=== PATIENT | male | born 1975 | race Caucasian/White ===

== ENCOUNTER 2016-10-18 21:41 | Inpatient (IN) | payer MEDICAID ==
[~2016-10-18] VITALS: Ht 162.6 cm; Wt 67.2 kg
[2016-10-18 21:47] VITALS: BP 130/100
--- NOTE | 2016-10-18 21:49 | NUR ---
[facility] TO ER BED 6
--- NOTE | 2016-10-18 21:59 | NUR ---
PT STATES HE HAS NOT BEEN ABLE TO KEEP ANY FOOD DOWN FOR 6 DAYS. PT SAYS HE EATS BUT THEN VOMIT IT OUT. PT ALSO STATES HE HAS HEART ARRYTHMIA
--- NOTE | 2016-10-18 21:59 | NUR ---
41Y M BIBA C/O ANXIETY AND DRINKING EXCESSIVE ALCOHOL X 2 WEEKS. PT DENIES CP SOB AT THE MOMENT. IV ACCESS WAS ESTABLISHED BY EMS 18G LAC. PT IS AAO X4. PT DENIES ANY PAIN AT THE MOMENT
[2016-10-18] MEDS ORDERED: THIAMINE 200 MG/2 ML VIAL IM ONE (22:15)
[2016-10-18] MEDS ORDERED: FOLIC ACID 5 MG/ML SYR IV ONE (22:15)
[2016-10-18] MEDS ORDERED: NACL 0.9% 2,000 ML IV ONE (22:15)
[2016-10-18 22:37] LABS: BASOPHILS # (AUTO) 0.2 K/uL (0.00-0.22); BASOPHILS % (AUTO) 4.7 % (0.0-2.0); EOSINOPHILS % (AUTO) 0.8 % (0.0-4.0); HEMATOCRIT 43.9 % (36-52); HEMOGLOBIN 14.8 g/dL (12.0-18.0); LYMPHOCYTES # (AUTO) 1.7 K/uL (2.0-11.5); LYMPHOCYTES % (AUTO) 43.1 % (20.5-51.1); MEAN CORPUSCULAR HEMOGLOBIN 30 pg (27-31); MEAN CORPUSCULAR HGB CONC 34 g/dL (33-37); MEAN CORPUSCULAR VOLUME 89 fL (80-94); MONOCYTES # (AUTO) 0.4 K/uL (0.8-1.0); MONOCYTES % (AUTO) 10.9 % (1.7-9.3); NEUTROPHILS # (AUTO) 1.5 K/uL (1.8-7.7); NEUTROPHILS % (AUTO) 40.5 % (42.2-75.2); PLATELET COUNT (AUTO) 95 K/uL (140-450); RED BLOOD CELL COUNT(AUTO) 4.93 MIL/uL (4.20-6.10); RED CELL DISTRIBUTION WIDTH 12.7 % (11.6-13.7); WHITE BLOOD COUNT (AUTO) 3.8 K/uL (4.8-10.8)
[2016-10-18] MEDS ORDERED: ONDANSETRON 4 MG/2 ML VIAL IVP ONE (22:50)
[2016-10-18] MEDS ORDERED: LORazepam 2 MG/ML VIAL IVP ONE (22:50)
[2016-10-18 22:52] LABS: ANION GAP 19.9 (8-16); CALCIUM 7.9 mg/dL (8.5-10.1); CARBON DIOXIDE 24.8 mmol/L (21-32); CREATININE 0.8 mg/dL (0.6-1.3); POTASSIUM 3.7 mmol/L (3.5-5.1)
[2016-10-18 22:56] LABS: INR 1.1 (0.8-1.2); PARTIAL THROMBOPLASTIN TIME 25.4 secs (22-35.6)
[2016-10-18 23:04] LABS: TOTAL BILIRUBIN 0.4 mg/dL (0.0-1.0); TOTAL PROTEIN, SERUM 7.7 g/dL (6.4-8.2)
[2016-10-18 23:05] LABS: ALBUMIN 3.8 g/dL (3.4-5.0); MAGNESIUM 1.9 mg/dL (1.8-2.4)
[2016-10-18] MEDS ORDERED: FAMOTIDINE 20 MG/2 ML VIAL IVP ONE (23:20)
[2016-10-18 23:28] LABS: CKMB RELATIVE INDEX 0.5 (0.0-2.5); CREATINE KINASE MB 6.7 ng/mL (0-3.6)
[2016-10-18 23:37] LABS: APPEARANCE,URINE CLEAR (CLEAR); COLOR,URINE YELLOW (YELLOW)
[2016-10-18 23:38] LABS: BACTERIA,URINE None Seen /HPF (None Seen); BILIRUBIN,URINE NEGATIVE (NEGATIVE); BLOOD, URINE TRACE (NEGATIVE); LEUKOCYTE ESTERASE ,URINE NEGATIVE (NEGATIVE); NITRITE, URINE NEGATIVE (NEGATIVE); PROTEIN,URINE NEGATIVE (NEGATIVE); RBC,URINE 0-3 /HPF (0-5); SQUAMOUS EPITHELIAL CELL,UR None Seen /LPF (0-3 (FEW)); UGLUCOSE NEGATIVE (NEGATIVE); UROBILINOGEN,URINE 0.2 EU/dL (0.2 - 1); WBC,URINE 0-3 /HPF (0-5)
[2016-10-18 23:40] LABS: AMPHETAMINE, URINE NEGATIVE ng/ml (NEG <=1000); BARBITURATE, URINE NEGATIVE ng/ml (NEG <=200); BENZODIAZEPINE, URINE NEGATIVE ng/mL (NEG <=200); CANNABINOID, URINE NEGATIVE ng/mL (NEG <=50); COCAINE, URINE NEGATIVE ng/mL (NEG <=300); OPIATE, URINE NEGATIVE ng/mL (NEG <=2000); PHENCYCLIDINE SCREEN,URINE NEGATIVE ng/mL (NEG <=25)
--- NOTE | 2016-10-19 | NUR ---
PT LEFT FOR CT VIA WC, ACCOMPANIED BY THROW OUT CLERK
[2016-10-19] MEDS ORDERED: LORazepam 1 MG TAB PO PRN ×2 (00:05)
[2016-10-19] MEDS ORDERED: ONDANSETRON 4 MG/2 ML VIAL IVP PRN ×2 (00:05→00:55)
--- NOTE | 2016-10-19 00:25 | NUR ---
Patient will be admitted to care of DR SALMERON. Admited to TELE 119A. Will go to [facility]A . Belongings list completed. Report to TIMI ANDRADE .
[2016-10-19 00:30] VITALS: BP 137/72
--- NOTE | 2016-10-19 00:30 | NUR ---
RECEIVED REPORT FROM ED RN FOR CONTINUITY OF CARE. 41 Y.O. MALE WITH DX: ABDOMINAL PAIN AND ALCOHOL INTOXICATION BROUGHT TO UNIT. PATIENT IS A&OX4 DISCUSSED PLAN OF CARE WITH PATIENT, VERBALIZED UNDERSTANDING. SHIFT ASSESSMENT DONE, VS TAKEN, STABLE. PATIENT STATES ABDOMINAL PAIN 5/10, WILL FOLLOW UP WITH MD FOR ORDERS. NO S/S OF RESPIRATORY DISTRESS NOTED ON ROOM AIR. IV TO LT AC PATENT AND INFUSING FLUIDS WELL. SKIN INTACT. MRSA SWAB COLLECTED, WRISTBANDS APPLIED. PATIENT AMBULATED TO RESTROOM, VOIDED. ORIENTED TO UNIT AND PLACED CALL LIGHT WITHIN REACH. WILL CONTINUE TO MONITOR.
[2016-10-19] MEDS ORDERED: NACL 0.9% 1,000 ML IV SCH (00:51)
[2016-10-19] MEDS ORDERED: MORPHINE SULFATE 2 MG/ML SYR IVP PRN (00:55)
[2016-10-19] MEDS ORDERED: ACETAMINOPHEN 325 MG TAB PO PRN (00:55)
[2016-10-19] MEDS ORDERED: LORazepam 2 MG/ML VIAL IVP PRN (00:55)
[2016-10-19] MEDS ORDERED: ZOLPIDEM 5 MG TAB PO PRN (00:55)
[2016-10-19] MEDS: HYDROcodone/APAP 5/325 MG 1 TAB TAB PO PRN ×2 (01:29→14:43)
--- NOTE | 2016-10-19 01:29 | NUR ---
PT MEDICATED FOR PAIN AND ANXIETY PER MD ORDER. CALL LIGHT WITHIN REACH. WILL CONTINUE TO MONITOR.
[2016-10-19] MEDS: NACL 0.9% 1,000 ML IV SCH ×2 (01:33→12:31)
[2016-10-19 01:45] LABS: FREE T4 (FREE THYROXINE) 0.87 ng/dL (0.76-1.46); THYROID STIMULATING HORMONE 1.48 uIU/mL (0.34-3.76)
--- NOTE | 2016-10-19 03:56 | NUR ---
VS TAKEN, STABLE. PT SLEEPING AT THIS TIME. NO S/S OF RESPIRATORY DISTRESS OR DISCOMFORT NOTED. CALL LIGHT WITHIN REACH.
[2016-10-19 04:00] VITALS: BP 109/65
[2016-10-19] MEDS: LORazepam 1 MG TAB PO SCH ×3 (05:35→21:28)
--- NOTE | 2016-10-19 05:35 | NUR ---
DUE MEDICATIONS ADMINISTERED, TOLERATED WELL. PT RESTING IN BED NO S/S OF DISTRESS OR DISCOMFORT NOTED. WILL CONTINUE TO MONITOR.
[2016-10-19 05:59] LABS: BASOPHILS # (AUTO) 0.2 K/uL (0.00-0.22); BASOPHILS % (AUTO) 4.8 % (0.0-2.0); EOSINOPHILS # (AUTO) 0.1 K/uL (0-0.4); EOSINOPHILS % (AUTO) 1.4 % (0.0-4.0); HEMATOCRIT 39.1 % (36-52); HEMOGLOBIN 13.1 g/dL (12.0-18.0); LYMPHOCYTES % (AUTO) 41.1 % (20.5-51.1); MEAN CORPUSCULAR HEMOGLOBIN 30 pg (27-31); MEAN CORPUSCULAR HGB CONC 34 g/dL (33-37); MEAN CORPUSCULAR VOLUME 90 fL (80-94); MONOCYTES # (AUTO) 0.5 K/uL (0.8-1.0); MONOCYTES % (AUTO) 11.3 % (1.7-9.3); NEUTROPHILS % (AUTO) 41.4 % (42.2-75.2); PLATELET COUNT (AUTO) 75 K/uL (140-450); RED BLOOD CELL COUNT(AUTO) 4.34 MIL/uL (4.20-6.10); RED CELL DISTRIBUTION WIDTH 13.2 % (11.6-13.7); WHITE BLOOD COUNT (AUTO) 4.8 K/uL (4.8-10.8)
[2016-10-19 07:15] LABS: MAGNESIUM 1.8 mg/dL (1.8-2.4); PHOSPHORUS 3.6 mg/dL (2.5-4.9)
--- NOTE | 2016-10-19 07:15 | NUR ---
RECEIVED PATIENT REPORT AT BEDSIDE. PATIENT AWAKE, ALERT AND ORIENTED. NO S/S OF DISTRESS NOTED. NO C/O OF PAIN AT THIS TIME. IV LINE NOTED TO THE LEFT AC WITH IVF INFUSING WELL. PATIENT ON TELE MONITORING. BED LOWERED WITH CALL LIGHT WITHIN REACH. WILL CONTINUE TO MONITOR
[2016-10-19 07:26] LABS: ANION GAP 15.8 (8-16); CALCIUM 7.5 mg/dL (8.5-10.1); CARBON DIOXIDE 24.5 mmol/L (21-32); CREATININE 0.8 mg/dL (0.6-1.3); POTASSIUM 3.3 mmol/L (3.5-5.1)
--- NOTE | 2016-10-19 07:30 | NUR ---
ENDORSED PATIENT TO DAY RN FOR CONTINUITY OF CARE, PATIENT IS IN STABLE CONDITION.
[2016-10-19 07:59] VITALS: BP 141/73
--- NOTE | 2016-10-19 08:52 | NUR ---
MADE DR FLETCHER AWARE OF PATIENT'S POTASSIUM LEVEL OF 3.3. DR MINAYA PUT ORDERS
[2016-10-19] MEDS ORDERED: POTASSIUM CHLORIDE 10 MEQ TABER PO SCH (09:00)
[2016-10-19] MEDS: MULTIVITAMIN 1 TAB PO SCH (09:12)
[2016-10-19] MEDS: THIAMINE 100 MG TAB PO SCH (09:13)
[2016-10-19] MEDS: FOLIC ACID 1 MG TAB PO SCH (09:13)
--- NOTE | 2016-10-19 09:15 | NUR ---
PATIENT HAS BEEN SCREENED AND CATEGORIZED HIGH NUTRITION RISK. PATIENT WILL BE SEEN WITHIN 1-2 DAYS OF ADMISSION. 10/19/16-10/20/[address]
[2016-10-19 12:00] VITALS: BP 145/95
--- NOTE | 2016-10-19 12:15 | NUR ---
10/19/16 RD INITIAL ASSESSMENT COMPLETED PLEASE REFER TO NUTRITION ASSESSMENT UNDER CARE ACTIVITY FOR ESTIMATED NUTRITIONAL NEEDS. RD RECOMMENDATIONS: 1. CONTINUE ON REGULAR DIET TOLERATED. --NOTE PT MEETING 100% ESTIMATED KCAL AND PROTEIN NEEDS. 2. RD WILL F/U 3-5 DAYS; MODERATE RISK. BRYAN LAO, SARBJIT
[2016-10-19] MEDS: ONDANSETRON 4 MG/2 ML VIAL IVP PRN ×2 (14:09→21:18)
[2016-10-19 16:00] VITALS: BP 145/87
--- NOTE | 2016-10-19 16:30 | NUR ---
PATIENT RESTING COMFORTABLY IN BED, WATCHING TELEVISION. FAMILY MEMBER PRESENT AT BEDSIDE
[2016-10-19] MEDS ORDERED: NITROGLYCERIN 0.4 MG TAB SL PRN (17:30)
[2016-10-19] MEDS ORDERED: ASPIRIN 81 MG TAB.CHEW PO SCH (17:54)
--- NOTE | 2016-10-19 19:15 | NUR ---
PATIENT REPORT GIVEN AT BEDSIDE. PATIENT ENDORSED IN STABLE CONDITION
--- NOTE | 2016-10-19 19:16 | NUR ---
RECEIVED REPORT FROM DAY RN FOR CONTINUITY OF CARE. PATIENT IS A&OX4 DISCUSSED PLAN OF CARE WITH PATIENT, VERBALIZED UNDERSTANDING. SHIFT ASSESSMENT DONE, VS TAKEN, STABLE AT THIS TIME. PATIENT STATES TOLERABLE ABDOMINAL PAIN, WILL MEDICATE NEEDED. NO S/S OF RESPIRATORY DISTRESS NOTED ON ROOM AIR. IV TO LT AC PATENT, FLUSHED AND DRESSING REINFORCED. PATIENT AMBULATED TO RESTROOM WITH ASSISTANCE AND VOIDED. FAMILY MEMBER AT BEDSIDE. SAFETY MEASURES ENFORCED. WILL CONTINUE TO MONITOR.
[2016-10-19 20:00] VITALS: BP 147/88
[2016-10-19] MEDS ORDERED: ATORVASTATIN 20 MG TAB PO SCH (21:00)
--- NOTE | 2016-10-19 21:20 | NUR ---
PT VOMITED X1 AFTER EATING AND C/O ABDOMINAL PAIN, MEDICATED PER MD ORDER. CALL LIGHT WITHIN REACH AND FAMILY MEMBERS AT BEDSIDE. WILL CONTINUE TO MONITOR.
[2016-10-19] MEDS: METOPROLOL 25 MG TAB PO SCH (21:29)
--- NOTE | 2016-10-19 23:00 | NUR ---
SPOKE TO DR. ANTONIO REGARDING ABNORMAL EKG RESULTS AND PT C/O CHEST PAIN. NO NEW ORDERS AT THIS TIME.
[2016-10-20] VITALS: BP 140/88
--- NOTE | 2016-10-20 00:20 | NUR ---
VS TAKEN, STABLE. PT NOW SLEEPING AT THIS TIME. WILL CONTINUE TO MONITOR.
[2016-10-20] MEDS: NACL 0.9% 1,000 ML IV SCH (01:32)
--- NOTE | 2016-10-20 02:00 | NUR ---
PT RESTING IN BED. NO S/S OF DISTRESS NOTED. CALL LIGHT WITHIN REACH. WILL CONTINUE TO MONITOR.
[2016-10-20 04:00] VITALS: BP 144/85
[2016-10-20] MEDS: LORazepam 1 MG TAB PO SCH ×2 (04:32→12:52)
--- NOTE | 2016-10-20 04:35 | NUR ---
VS TAKEN, STABLE. PT SLEEPING, NO S/S OF DISTRESS OR DISCOMFORT NOTED. CALL LIGHT WITHIN REACH.
--- NOTE | 2016-10-20 06:01 | NUR ---
PATIENT SLEEPING AT THIS TIME. NO S/S OF DISTRESS OR DISCOMFORT NOTED. SAFETY MEASURES ENFORCED. CALL LIGHT WITHIN REACH.
[2016-10-20 06:08] LABS: BASOPHILS # (AUTO) 0.1 K/uL (0.00-0.22); BASOPHILS % (AUTO) 1.7 % (0.0-2.0); EOSINOPHILS # (AUTO) 0.1 K/uL (0-0.4); EOSINOPHILS % (AUTO) 2.8 % (0.0-4.0); HEMATOCRIT 41.2 % (36-52); HEMOGLOBIN 13.9 g/dL (12.0-18.0); LYMPHOCYTES # (AUTO) 1.2 K/uL (2.0-11.5); LYMPHOCYTES % (AUTO) 23.9 % (20.5-51.1); MEAN CORPUSCULAR HEMOGLOBIN 31 pg (27-31); MEAN CORPUSCULAR HGB CONC 34 g/dL (33-37); MEAN CORPUSCULAR VOLUME 92 fL (80-94); MONOCYTES # (AUTO) 0.5 K/uL (0.8-1.0); MONOCYTES % (AUTO) 10.7 % (1.7-9.3); NEUTROPHILS # (AUTO) 3.1 K/uL (1.8-7.7); NEUTROPHILS % (AUTO) 60.9 % (42.2-75.2); PLATELET COUNT (AUTO) 70 K/uL (140-450); RED BLOOD CELL COUNT(AUTO) 4.47 MIL/uL (4.20-6.10); RED CELL DISTRIBUTION WIDTH 12.8 % (11.6-13.7)
[2016-10-20 06:25] LABS: ANION GAP 12.7 (8-16); CALCIUM 8.9 mg/dL (8.5-10.1); CARBON DIOXIDE 28.1 mmol/L (21-32); CREATININE 0.8 mg/dL (0.6-1.3); POTASSIUM 3.8 mmol/L (3.5-5.1)
[2016-10-20 06:31] LABS: PHOSPHORUS 4.1 mg/dL (2.5-4.9)
--- NOTE | 2016-10-20 07:24 | NUR ---
ENDORSED PATIENT TO DAY RN FOR CONTINUITY OF CARE, PATIENT IS IN STABLE CONDITION.
--- NOTE | 2016-10-20 07:25 | NUR ---
RECEIVED SBAR REPORT FROM NIGHT RN AT PT BEDSIDE. PT RESTING IN BED. ALERT AND ORIENTED X4. DENIES DISCOMFORT. NO S/S OF RESPIRATORY DISTRESS. MILD TREMORS NOTED IN HANDS. DENIES N/V/D. NO ALTERED MENTATION NOTED. IV SITE PATENT AND INTACT. CALL LIGHT WITHIN REACH. BED IN LOWEST POSITION. WILL CONTINUE TO MONITOR.
[2016-10-20 08:00] VITALS: BP 145/91
[2016-10-20] MEDS: MULTIVITAMIN 1 TAB PO SCH (08:55)
[2016-10-20] MEDS: METOPROLOL 25 MG TAB PO SCH (08:55)
[2016-10-20] MEDS: FOLIC ACID 1 MG TAB PO SCH (08:55)
[2016-10-20] MEDS: THIAMINE 100 MG TAB PO SCH (08:55)
[2016-10-20] MEDS ORDERED: LISINOPRIL 5 MG TAB PO SCH (09:00)
[2016-10-20] MEDS ORDERED: ASPIRIN 81 MG TAB.CHEW PO SCH (09:00)
[2016-10-20 09:08] LABS: T4 (THYROXINE) 6.2 ug/dL (4.5-12.0)
[2016-10-20] MEDS ORDERED: FOLI1TAB90 PO (11:44)
[2016-10-20] MEDS ORDERED: THIA-8 PO (11:44)
[2016-10-20] MEDS ORDERED: LORA-476 PO (11:44)
[2016-10-20] MEDS ORDERED: MULT-405 PO (11:45)
[2016-10-20] MEDS ORDERED: IBUP-2213 PO (11:52)
[2016-10-20 12:00] VITALS: BP 140/90
--- NOTE | 2016-10-20 13:59 | NUR ---
PT AMBULATED TO BATHROOM. NO S/S OF ACUTE DISTRESS.
--- NOTE | 2016-10-20 14:40 | NUR ---
PATIENT DISCHARGE INSTRUCTIONS GIVEN, VERBALIZED UNDERSTANDING. PRESCRIPTIONS GIVEN, WITH FOLLOW UP APPOINTMENT VERBALIZED UNDERSTANDING. IV REMOVED, CANULA INTACT. AAOX4. AMBULATORY. PATIENT WHEELED TO FRONT LOBBY, PATIENT AWAITING SISTER TO TAKE PATIENT HOME. NO S/S OF DISTRESS.
[2016-11-16 15:26] LABS: HEMOGLOBIN A1C 5.7 % (4.8-5.6)
== END 2016-10-20 14:40 | disposition home or self-care (01) | DRG 775 ==
LOC: MED 21:41 → MTU 23:59
PROVIDERS: ADMIT Family Medicine; ATTEND Family Medicine
DX: F10.129 Alcohol abuse with intoxication, unspecified (principal); G92 Toxic encephalopathy; K76.0 Fatty (change of) liver, not elsewhere classified; K70.10 Alcoholic hepatitis without ascites; E83.51 Hypocalcemia; K29.20 Alcoholic gastritis without bleeding; M94.0 Chondrocostal junction syndrome [Tietze]; Y90.8 Blood alcohol level of 240 mg/100 ml or more; E86.0 Dehydration; R74.0 Nonspecific elevation of levels of transaminase and lactic acid dehydrogenase [LDH]; E78.2 Mixed hyperlipidemia; Y92.89 Other specified places as the place of occurrence of the external cause
CPT/HCPCS: 36415; 71010; 76705; 80048; 80053; 80305; 81001; 82550; 82553; 83036; 83690; 83735; 84100; 84436; 84439; 84443; 84479; 84484; 85025; 85610; 85730; 87081; 93005; 96361; 96372; 96374; 96375; 99285; G0482; J2060; J2270; J2405; J3411; J3490; J7030; Q0092